=== PATIENT | female | born 1975 | race African-American/Black ===

== ENCOUNTER 2017-09-13 17:44 | Inpatient (IN) | payer SELFPAY ==
[~2017-09-13 17:44] MED LIST: Lidocaine 1% PF 5 ML VIAL ONE; PROPOFOL 200 MG/20 ML VIAL ONE
--- NOTE | 2017-09-13 18:46 | RAD ---
RIGHT HAND: 09/13/17 Three views. HISTORY: Injury with pain. Carpals appear intact. The metacarpals and phalanges appear intact. There is flexion of the PIP joint s which degrades evaluation of the phalanges. IMPRESSION: No acute fracture or dislocation identified. POS: [facility]
--- NOTE | 2017-09-13 18:52 | RAD ---
RIGHT FOREARM TWO VIEWS: 09/13/17 HISTORY: Injury. Right forearm pain. FINDINGS/IMPRESSION: No bony abnormalities are identified. POS: [facility]
[2017-09-13 19:07] LABS: #Basophils 0.1 thou/uL (0.0-0.2); #Lymphocytes 1.3 thou/uL (1.20-3.40); #Neutrophils 11.7 thou/uL (1.40-6.50); %Basophils 0.4 % (0.0-1.0); %Eosinophils 0.2 % (0.0-10.0); %Lymphocytes 9.5 % (21.0-51.0); %Monocytes 6.9 % (0.0-10.0); Hemoglobin 13.2 g/dL (12.0-16.0); Mean Corpuscular HGB CONC 33.9 g/dL (32.0-36.0); Mean Corpuscular Hemoglobin 30.6 pg (27.0-31.0); Mean Corpuscular Volume 90.2 fl (81.0-99.0); Mean Platelet Volume 9.2 fL (7.4-10.4); Platelet Count 263 thou/uL (130-400); RBC Distribution Width 13.1 % (11.5-14.5); Red Blood Cell (RBC) Count 4.31 mill/uL (4.20-5.40); White Blood Cell (WBC) Count 14.1 thou/uL (4.8-10.8)
[2017-09-13] MEDS ORDERED: Adacel (T-DAP) 0.5 ML VIAL ONE (19:16)
[2017-09-13 19:17] LABS: Pregnancy Test - Urine (BHCG) Negative (Negative); Pregu Control Background? CLEAR/WHITE (CLR/WHITE); Pregu Control Bar Appear? YES (CONTROL BAR); Specific Gravity 1.036 (1.002-1.036)
[2017-09-13 20:04] LABS: Albumin 3.9 g/dL (3.5-5.0)
[2017-09-13 20:05] LABS: Chloride 105 mmol/L (98-107); Potassium 3.9 mmol/L (3.5-5.1); Sodium 136 mmol/L (136-145)
[2017-09-13 20:06] LABS: Calcium 9.5 mg/dL (7.8-10.44); Glucose 264 mg/dL (70-105)
[2017-09-13 20:07] LABS: Globulin 4.1 g/dL (2.4-3.5)
[2017-09-13 20:08] LABS: Anion Gap 17 mmol/L (10-20); Bilirubin, Total 0.6 mg/dL (0.2-1.2); Carbon Dioxide 18 mmol/L (22-29)
[2017-09-13 20:09] LABS: Alkaline Phosphatase 76 U/L (40-150)
--- NOTE | 2017-09-13 20:09 | HP ---
DATE OF ADMISSION: 09/13/2017 PRINCIPAL DIAGNOSIS: Right hand infection. BRIEF HISTORY OF PRESENT ILLNESS: The patient is a 42-year-old right-hand dominant lady, who reports that yesterday she was trying to change a tire on her car when the car iftikhar fell, striking her hand. She reports that over the last 24 hours, she has had increasing pain, swelling, and redness as well as some drainage from a dorsal laceration. She denies numbness or tingling. [facility] of increasing pain, tachycardia, and just a general sense of malaise associated with this hand injury. Upon evaluation, she was found to have a very swollen right hand with a tens e thenar eminence and swelling over the dorsal aspect of the thumb webspace. As such, orthopedic con sultation requested. PAST MEDICAL HISTORY: Remarkable for diabetes and hypertension. PAST SURGICAL HISTORY: Negative. MEDICATIONS: Lisinopril 20 mg p.o. daily, metformin 1000 mg p.o. 2 times a day before meals, and Lev jesenia 55 units subcutaneous 2 times a day before meals. ALLERGIES: None known. FAMILY HISTORY: Noncontributory. SOCIAL HISTORY: The patient smokes socially a few cigarettes per day. She denies alcohol or drug us e. REVIEW OF SYSTEMS: She reports some sensation of sweats and what she believes were low-grade fevers. Denies chest pain or shortness of breath. Denies numbness or tingling in the hand. PHYSICAL EXAMINATION: VITAL SIGNS: Temperature 98.5, heart rate of 120, respiratory rate of 18, and blood pressure of 148/ 100. HEENT: Atraumatic, normocephalic. HEART: Regular rate and rhythm without murmur. LUNGS: Clear to auscultation with good breath sounds bilaterally. ABDOMEN: Round and soft with normal bowel sounds. PELVIS: Stable. EXTREMITIES: Remarkable for a right upper extremity with atraumatic shoulder, elbow, and forearm. H er hand is remarkable for a small laceration over the dorsal aspect of the hand basically overlying t he index metacarpal. This is full-thickness skin, but does not appear to have significant soft tissu e trauma associated with this laceration. She was found to have significant swelling along the thena r eminence with redness, extreme tenderness to palpation, and pain with extension of the thumb. I do not appreciate significant flexor tendon tenderness along the thumb, but she clearly has pain when I extended. LABORATORY DATA: White count of 14.1, hematocrit of 38.9, and platelets 263,000. X-rays remarkable for a 2-view x-ray of the right forearm, which is remarkable for normal bony anatomy. A 3-view x-ray of the right hand is remarkable for no evidence of acute fracture or dislocation. There does appear to be some air or gas within the thenar eminence region that appears to be in the subcutaneous space , perhaps just consistent with her crush injury and laceration, although I think we do need to rule o ut the possibility of deeper infection as well. ASSESSMENT: A 42-year-old lady status post crush injury to hand, now with a very swollen thenar madison ence; elevated white cell count of 14.1; and findings worrisome for deep infection of the thenar spac e. The patient also with a diagnosis of diabetes for which she is on medication, but reports poor co ntrol and also hypertension with marginal control. PLAN: At this time, the patient will be admitted to the Orthopedic Service. We will obtain medical consultation with the [facility] for management of her diabetes and hypertension. We will also ob tain consultation from Dr. Omar Ojeda regarding appropriate antibiotics once cultures have returne d. The patient will be given a tetanus update in the emergency room. We will hold antibiotics until we can obtain cultures from this hand. Today, I discussed with the patient risks and benefits of th e procedure, incision and drainage. Risks include, but are not limited to bleeding, infection, nerve injury, DVT, PE, loss of limb or life. The patient appears to understand and does wish to proceed. Consent will be obtained prior to surgery.
[2017-09-13 20:10] LABS: Calc. Creatinine Clearance 0 mL/min (70-130); Estimated GFR-MDRD Greater than 90
[2017-09-13 20:11] LABS: AST (SGOT) 8 U/L (5-34); BUN (Urea Nitrogen) 7 mg/dL (7.0-18.7)
[2017-09-13 20:12] LABS: ALT (SGPT) 7 U/L (8-55)
[2017-09-13] MEDS ORDERED: Fentanyl 100 MCG/2 ML VIAL ONE ×6 (20:53→23:42)
[2017-09-13] MEDS ORDERED: Ketorolac Tromethamine 30 MG/ML VIAL ONE (21:59)
[2017-09-13] MEDS ORDERED: Neomycin-Polymyxin 1 ML AMP ONE (22:11)
[2017-09-13] MEDS ORDERED: Piperacillin/Tazobactam 3.375 GM VIAL ONE (23:06)
[2017-09-13] MEDS ORDERED: Promethazine HCl 25 MG/ML VIAL SLOW IVP PRN (23:26)
[2017-09-13] MEDS ORDERED: Ondansetron HCl/PF 4 MG/2 ML Vial IVP PRN (23:26)
[2017-09-13] MEDS ORDERED: Promethazine HCl 25 MG/ML VIAL IM PRN (23:26)
[2017-09-14] MEDS ORDERED: diphenhydrAMINE 50 MG/ML VIAL ONE (00:02)
[2017-09-14 00:40] VITALS: BMI 33.1
[2017-09-14] MEDS ORDERED: Communication Order-Pharmacy FS SCH (01:32)
[2017-09-14] MEDS ORDERED: Acetaminophen 325 MG TAB PO PRN (01:32)
[2017-09-14] MEDS ORDERED: traMADol HCl 50 MG TAB PO PRN ×2 (01:32)
[2017-09-14] MEDS ORDERED: TETANUS AND DIPHTHERIA TOX/PF 0.5 ML DISP.SYRIN IM SCH (01:32)
[2017-09-14] MEDS ORDERED: Ondansetron HCl/PF 4 MG/2 ML Vial IV PRN (01:32)
[2017-09-14] MEDS ORDERED: HYDROcodone/Acetaminophen 10/325 mg Tablet PO PRN (01:32)
[2017-09-14] MEDS ORDERED: Fentanyl 100 MCG/2 ML VIAL SLOW IVP PRN (01:32)
[2017-09-14] MEDS: Piperacillin/Tazobactam 3.375 GM in Sodium Chloride 0.9% 100 ML IVPB SCH ×5 (01:34→21:11)
[2017-09-14] MEDS ORDERED: diphenhydrAMINE 25 MG CAP PO PRN (01:47)
[2017-09-14] MEDS ORDERED: Aspirin 81 mg Enteric Coated Tablet PO SCH (02:00)
[2017-09-14] MEDS: CEFAZOLIN/Water 2 GM/20 ML SYRINGE SLOW IVP SCH ×4 (03:02→21:31)
[2017-09-14] MEDS: Vancomycin HCl 1.5 GM in Sodium Chloride 0.9% 250 ML 300 ML IVPB SCH ×2 (03:02→16:44)
[2017-09-14] MEDS: diphenhydrAMINE 50 MG/ML VIAL IVP PRN ×2 (03:03→10:03)
[2017-09-14 05:11] LABS: #Lymphocytes 1.3 thou/uL (1.20-3.40); #Monocytes 1.1 thou/uL (0.11-0.59); #Neutrophils 10.7 thou/uL (1.40-6.50); %Eosinophils 0.1 % (0.0-10.0); %Lymphocytes 9.8 % (21.0-51.0); %Monocytes 8.3 % (0.0-10.0); %Neutrophils 81.8 % (42.0-75.0); Hemoglobin 11.6 g/dL (12.0-16.0); Mean Corpuscular HGB CONC 33.7 g/dL (32.0-36.0); Mean Corpuscular Hemoglobin 30.2 pg (27.0-31.0); Mean Corpuscular Volume 89.5 fl (81.0-99.0); Mean Platelet Volume 8.1 fL (7.4-10.4); Platelet Count 264 thou/uL (130-400); RBC Distribution Width 12.6 % (11.5-14.5); Red Blood Cell (RBC) Count 3.85 mill/uL (4.20-5.40)
[2017-09-14] MEDS: Ketorolac Tromethamine 30 MG/ML VIAL IVP SCH ×5 (05:31→21:10)
[2017-09-14] MEDS: HYDROcodone/Acetaminophen 10/325 mg Tablet PO PRN ×2 (07:47→19:32)
[2017-09-14] MEDS ORDERED: Vancomycin HCl 1 GM in Premix Bag 1 BAG IVPB SCH (09:00)
[2017-09-14] MEDS: Aspirin 81 mg Enteric Coated Tablet PO SCH ×2 (10:06→21:11)
[2017-09-14] MEDS ORDERED: Dextrose 5% in Water 1,000 ML IV PRN (13:49)
[2017-09-14] MEDS ORDERED: Dextrose 50% Abboject 50 ML SYRINGE SLOW IVP PRN (13:49)
--- NOTE | 2017-09-14 13:52 | PDOC.PN ---
- Subjective Encounter Start Date: 09/14/17 Encounter Start Time: 13:30 Subjective: pt up in bed has some pain to her right hand - Objective Vital Signs & Weight: Vital Signs (12 hours) Temp Pulse Resp BP Pulse Ox 09/14/17 11:43 97.7 F 82 16 94/61 100 09/14/17 08:00 99 F 82 16 09/14/17 07:26 99 F 82 16 106/67 99 Weight Weight 205 lb 8 oz I&O: 09/13/17 09/14/17 09/15/17 06:59 06:59 06:59 Intake Total 200 Balance 200 Result Diagrams: 09/14/17 04:36 09/13/17 19:44 Phys Exam - Physical Examination HEENT: PERRLA, moist MMs, sclera anicteric, TM's clear, oral pharynx no lesions , 2+ tonsils Neck: no nodes, no JVD, supple, full ROM Respiratory: no wheezing, no rales, no rhonchi, wheezing present, clear to auscultation bilateral Cardiovascular: RRR, no significant murmur, no rub, gallop, irregular Musculoskeletal: pulses present, edema present right hand wrapped, sensation to right fingers intact Neurological: non-focal, normal sensation, moves all 4 limbs Dx/Plan (1) Diabetes Code(s): E11.9 - TYPE 2 DIABETES MELLITUS WITHOUT COMPLICATIONS Status: Acute (2) HTN (hypertension) Code(s): I10 - ESSENTIAL (PRIMARY) HYPERTENSION Status: Acute (3) Cellulitis of right hand Code(s): L03.113 - CELLULITIS OF RIGHT UPPER LIMB Status: Acute - Plan * pt underwent I&d of her right hand. Inoperative cx sent. pt on zosyn and vanco. * will continue decrease dose of her long acting insulin with sliding scale * will start her on iv fluids due to hypotension * will hold bp meds Review of Systems - Review of Systems Respiratory: negative: Cough, Dry, Shortness of Breath, Hemoptysis, SOB with Excertion, Pleuritic Pain, Sputum, Wheezing Cardiovascular: negative: chest pain, palpitations, orthopnea, paroxysmal nocturnal dyspnea, edema, light headedness, other Gastrointestinal: negative: Nausea, Vomiting, Abdominal Pain, Diarrhea, Constipation, Melena, Hematochezia, Other Genitourinary: negative: Dysuria, Frequency, Incontinence, Hematuria, Retention , Other Musculoskeletal: Other (right hand pain) - Medications/Allergies Allergies/Adverse Reactions: Allergies Allergy/AdvReac Type Severity Reaction Status Date / Time No Known Drug Allergies Allergy Verified 09/27/13 18:11 Medications: Current Medications Acetaminophen (Tylenol) 650 mg PO Q6H PRN PRN Reason: Headache/Temp >101F/Mild Pain Hydrocodone Bitart/Acetaminophen ([place] 10/325) 1 tab PO Q4H PRN PRN Reason: Moderate Pain (4-6) Hydrocodone Bitart/Acetaminophen ([place] 10/325) 2 tab PO Q4H PRN PRN Reason: Severe Pain (7-10) Last Admin: 09/14/17 07:47 Dose: 2 tab Aspirin (Ecotrin) 81 mg PO BID [facility] Last Admin: 09/14/17 10:06 Dose: 81 mg Cefazolin Sodium (Ancef) 2 gm SLOW IVP Q8H [facility] Stop: 09/16/17 06:31 Dextrose/Water (Dextrose 50%) 25 gm SLOW IVP PRN PRN PRN Reason: Hypoglycemia Diphenhydramine HCl (Benadryl) 25 mg PO Q3H PRN PRN Reason: Itching & Insomnia Diphenhydramine HCl (Benadryl) 25 mg IVP Q3H PRN PRN Reason: Itching & Insomnia Last Admin: 09/14/17 03:03 Dose: 25 mg Fentanyl (Sublimaze) 50 mcg SLOW IVP Q30M PRN PRN Reason: Severe breakthrough pain Glucagon (Glucagon) 1 mg IM PRN PRN PRN Reason: Hypoglycemia Vancomycin HCl 1.5 gm/ Sodium (Chloride) 300 mls @ 200 mls/hr IVPB 0400,1600 [facility] Last Admin: 09/14/17 03:02 Dose: 300 mls Dextrose/Water (D5w) 1,000 mls @ 0 mls/hr IV .Q0M PRN; As Directed PRN Reason: Hypoglycemia Insulin Glargine 15 units/ (Miscellaneous Medication) 0.15 mls @ 0 mls/hr SC HS MIREYA Insulin Glargine 15 units/ (Miscellaneous Medication) 0.15 mls @ 0 mls/hr SC QAM [facility] Sodium Chloride (Normal Saline 0.9%) 1,000 mls @ 100 mls/hr IV .Q10H [facility] Last Admin: 09/14/17 14:56 Dose: 1,000 mls Piperacillin Sod/Tazobactam (Sod 3.375 gm/ Sodium Chloride) 100 mls @ 200 mls/ hr IVPB Q6H [facility] Last Admin: 09/14/17 14:59 Dose: 100 mls Insulin Human Lispro (Humalog) 0 units SC .MODERATE SLIDING SC PRN PRN Reason: Moderate Correctional Scale Ketorolac Tromethamine (Toradol) 15 mg IVP Q6H [facility] Stop: 09/15/17 02:31 Last Admin: 09/14/17 14:56 Dose: 15 mg Miscellaneous Information (Communication Order-Pharmacy) 1 each FS PRN [facility] Morphine Sulfate (Morphine) 2 mg SLOW IVP Q2H PRN PRN Reason: Moderate Pain (4-6) Morphine Sulfate (Morphine Sulfate) 4 mg SLOW IVP Q2H PRN PRN Reason: Severe Pain (7-10) Last Admin: 09/14/17 03:12 Dose: 4 mg Ondansetron HCl (Zofran) 4 mg PO Q6H PRN PRN Reason: Nausea Ondansetron HCl (Zofran) 4 mg IV Q6H PRN PRN Reason: Nausea Sodium Chloride (Flush - Normal Saline) 10 ml IVF PRN PRN PRN Reason: Saline Flush Tramadol HCl (Ultram) 50 mg PO Q6H PRN PRN Reason: Mild Pain (1-3) Tramadol HCl (Ultram) 100 mg PO Q6H PRN PRN Reason: Moderate Pain (4-6)
--- NOTE | 2017-09-14 14:47 | EKG ---
Test Reason : PREOP Blood Pressure : / mmHG Vent. Rate : 100 BPM Atrial Rate : 100 BPM P-R Int : 134 ms QRS Dur : 072 ms QT Int : 328 ms P-R-T Axes : 060 025 031 degrees QTc Int : 423 ms Normal sinus rhythm Possible Left atrial enlargement Borderline ECG Confirmed by JACQUE GOMEZ ([id number]), dictionary editor LILY PIPER ([id number]) on 09/14/2017 2:46:56 PM Referred By: KYLAH RIVERA Confirmed By:JACQUE GOMEZ
[2017-09-14] MEDS: Sodium Chloride 0.9% 1,000 ML IV SCH ×2 (14:56→21:16)
[2017-09-14] MEDS: HumaLOG 300 UNITS/3 ML VIAL SC PRN ×2 (16:37→21:12)
[2017-09-14 17:52] LABS: HIV (1/2) Antibody/Antigen Non-Reactive (NonReactive); HIV 1/2 INDEX 0.07 S/CO (<1.00); Hep C IgG Ab Non-Reactive (NonReactive); Hep C Index 0.06 S/CO (0-0.79)
[2017-09-14] MEDS ORDERED: Insulin Glargine 15 UNITS in Pre-Filled Syringe 1 EACH SC SCH (21:00)
--- NOTE | 2017-09-14 21:52 | CON ---
DATE OF CONSULTATION: 09/14/2017 REASON FOR CONSULTATION: Hand abscess. HISTORY OF PRESENT ILLNESS: A 42-year-old patient who has a history of type 2 diabetes and hypertens ion and sustained injury to her right hand while trying to change her car tire. There was some lacer ation, which became infected. She developed inflammatory changes and was admitted. Dr. Verdugo com pleted I&D. It looks like the patient had a thenar eminence abscess, which was I&D'd. The details o f the operative report are not yet transcribed. The patient is feeling better. She denies any heada ches, visual symptoms, sore throat, odynophagia, dysphagia. No dyspnea. No abdominal pain or diarrh ea. No genitourinary symptoms. No joint symptoms. No neurological symptoms. PAST MEDICAL HISTORY: Type 2 diabetes, hypertension. PAST SURGICAL HISTORY: The I&D done just recently. FAMILY HISTORY: Noncontributory. ALLERGIES: None. SOCIAL HISTORY: Current smoker. 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 No alcoholic beverage use or drug use. CURRENT MEDICATIONS: Tylenol, Sarita, Ecotrin, Ancef, Benadryl, insulin, Zosyn, vancomycin. PHYSICAL EXAMINATION: VITAL SIGNS: T-max 99, BP 108/73. Other vital signs are normal. O2 saturations 99%. SKIN: Shows the right hand abscess, status post I&D with packed thenar eminence wound. The patient has peripheral IV access. No lymphadenopathy. HEENT: Noncontributory. NECK: Supple. LUNGS: Symmetric clear breath sounds. HEART: S1, S2 regular rate. No S3 or S4. ABDOMEN: Soft. Not distended or tender. No ascites. No bladder distention. EXTREMITIES: No joint inflammatory activity. NEUROLOGIC: No neurological abnormalities noted. LABORATORY DATA: White cell count down to 13,000, hemoglobin 11.6, platelets 264. Sodium 136, creat inine 0.8, AST 8, ALT 7, alkaline phosphatase 76, albumin 3.9, globulin 4.1. Urinalysis was not clarisa rkable. Microbiology: We have pending cultures. The Gram stain showed polymicrobial mariela, part of it with gram positive in pairs and clusters, some gram-negative rods and gram-positive rods as well. ASSESSMENT: Injury to right hand with polymicrobial hand abscess, status post incision and drainage. We will wait on the surgical reports to review the details and also wait on the final ID and suscep tibilities of the organisms isolated to devise a discharge regimen; hopefully, oral regimen for disch arge planning. It does not look like she is going to require long-term therapy. We will check her H IV and hepatitis C status while she is here.
[2017-09-15] MEDS: Ketorolac Tromethamine 30 MG/ML VIAL IVP SCH (02:23)
[2017-09-15] MEDS: Piperacillin/Tazobactam 3.375 GM in Sodium Chloride 0.9% 100 ML IVPB SCH ×4 (02:23→21:36)
[2017-09-15] MEDS: Vancomycin HCl 1.5 GM in Sodium Chloride 0.9% 250 ML 300 ML IVPB SCH (03:41)
[2017-09-15] MEDS: CEFAZOLIN/Water 2 GM/20 ML SYRINGE SLOW IVP SCH ×3 (06:08→21:37)
[2017-09-15] MEDS: HumaLOG 300 UNITS/3 ML VIAL SC PRN ×3 (06:11→16:45)
[2017-09-15] MEDS ORDERED: Non-Formulary Item 1 EACH (Lisinopril [Lisinopril] 40 MG) PO SCH (09:00)
[2017-09-15] MEDS ORDERED: Insulin Glargine 15 UNITS in Pre-Filled Syringe 1 EACH SC SCH (09:00)
[2017-09-15] MEDS: Insulin Glargine 60 UNITS in Pre-Filled Syringe 1 EACH SC SCH (09:19)
[2017-09-15] MEDS: Sodium Chloride 0.9% 1,000 ML IV SCH ×2 (11:10→23:13)
[2017-09-15] MEDS: Aspirin 81 mg Enteric Coated Tablet PO SCH ×2 (11:14→21:33)
[2017-09-15] MEDS: HYDROcodone/Acetaminophen 10/325 mg Tablet PO PRN ×3 (11:14→21:35)
--- NOTE | 2017-09-15 12:25 | SPC ---
SONOGRAPHIC GUIDED LEFT UPPER EXTREMITY PICC PLACEMENT: Date: 09/15/17 HISTORY: Hand infection. FINDINGS: After explaining the procedure and answering all questions, the left upper extremity was prepped and draped in the usual sterile fashion. Sterile technique, buffered local anesthesia, sonographic guidan ce, and a 22 gauge needle were used to carefully access the left basilic vein. Standard technique was then used to place the tip of a 5 Spanish single lumen PICC so that the tip lies at the level of the right atrium. The catheter was flushed and secured externally. The patient tolerated the procedure we ll and was returned in unchanged condition. Fluoro Time: 0.1 minutes. IMPRESSION: Technically successful left upper extremity PICC placement. Catheter is now ready for use. POS: [facility]
[2017-09-15 15:13] LABS: Vancomycin, Trough 10.8 ug/mL
[2017-09-15] MEDS: Vancomycin HCl 1.75 GM in Sodium Chloride 0.9% 500 ML IVPB SCH (16:01)
--- NOTE | 2017-09-15 17:34 | PRG ---
DATE OF SERVICE: 09/15/2017 SUBJECTIVE: Still concerned with size of the wound. It is moderately painful. No respiratory sympt oms or abdominal pain, no diarrhea. PHYSICAL EXAMINATION: VITAL SIGNS: Normal. The wound is packed and dressed, which was not removed. LUNGS: Without any significant changes. HEART: Without any significant changes. ABDOMEN: Without any significant changes. LABORATORY DATA: White cell count 13.0, hemoglobin 11.6 from yesterday. Platelets 264. Chemistry w ith creatinine of 0.8. Liver profile normal. Hepatitis C and HIV nonreactive. Her hand culture rev ealed group C streptococcus. ASSESSMENT AND DISCUSSION: Injury to right hand with hand abscess, looks like it is going to turn ou t to be secondary to group C streptococcus. Consider discharge planning on Keflex 500 mg 4 times lisa ly for 10 days, wound care.
[2017-09-15] MEDS ORDERED: Insulin Glargine 60 UNITS in Pre-Filled Syringe 1 EACH SC SCH (21:00)
[2017-09-15] MEDS ORDERED: Insulin Glargine 30 UNITS in Pre-Filled Syringe 1 EACH SC SCH (21:00)
[2017-09-16] MEDS: Piperacillin/Tazobactam 3.375 GM in Sodium Chloride 0.9% 100 ML IVPB SCH ×3 (02:20→16:32)
[2017-09-16] MEDS: Vancomycin HCl 1.75 GM in Sodium Chloride 0.9% 500 ML IVPB SCH ×2 (03:32→18:12)
[2017-09-16] MEDS: Sodium Chloride 0.9% 1,000 ML IV SCH (05:33)
[2017-09-16] MEDS: CEFAZOLIN/Water 2 GM/20 ML SYRINGE SLOW IVP SCH (05:52)
[2017-09-16] MEDS: HYDROcodone/Acetaminophen 10/325 mg Tablet PO PRN ×3 (05:57→14:21)
--- NOTE | 2017-09-16 07:31 | PDOC.PN ---
- Subjective Encounter Start Date: 09/15/17 Encounter Start Time: 10:45 Subjective: pt up in bed no complains - Objective Vital Signs & Weight: Vital Signs (12 hours) Temp Pulse Resp BP Pulse Ox 09/16/17 03:58 98.6 F 77 16 128/73 100 09/16/17 03:00 99 09/15/17 23:55 98.8 F 81 16 119/77 100 09/15/17 20:27 98.4 F 79 20 153/91 H 100 09/15/17 20:00 98.4 F 79 20 100 Weight Admit Weight 205 lb Weight 205 lb 8 oz I&O: 09/15/17 09/16/17 09/17/17 06:59 06:59 06:59 Intake Total 2571.0 3980 Balance 2571.0 3980 Result Diagrams: 09/14/17 04:36 09/13/17 19:44 Additional Labs: Accuchecks 09/16/17 09/15/17 09/15/17 05:38 20:52 16:13 POC Glucose 97 174 H 281 H 09/15/17 11:30 POC Glucose 264 H Phys Exam - Physical Examination HEENT: PERRLA, moist MMs, sclera anicteric, TM's clear, oral pharynx no lesions , 2+ tonsils Neck: no nodes, no JVD, supple, full ROM Respiratory: no wheezing, no rales, no rhonchi, wheezing present, clear to auscultation bilateral Cardiovascular: RRR, no significant murmur, no rub, gallop, irregular right hand wrapped in rosa isela Dx/Plan (1) Diabetes Code(s): E11.9 - TYPE 2 DIABETES MELLITUS WITHOUT COMPLICATIONS Status: Acute (2) HTN (hypertension) Code(s): I10 - ESSENTIAL (PRIMARY) HYPERTENSION Status: Acute (3) Cellulitis of right hand Code(s): L03.113 - CELLULITIS OF RIGHT UPPER LIMB Status: Acute - Plan * Long acting insulin dose increased. continue abx for now. ID consulted. If bp is stable will discontinue fluids. Review of Systems - Review of Systems ENT: negative: Ear Pain, Ear Discharge, Nose Pain, Nose Discharge, Nose Congestion, Mouth Pain, Mouth Swelling, Throat Pain, Throat Swelling, Other Respiratory: negative: Cough, Dry, Shortness of Breath, Hemoptysis, SOB with Excertion, Pleuritic Pain, Sputum, Wheezing Cardiovascular: negative: chest pain, palpitations, orthopnea, paroxysmal nocturnal dyspnea, edema, light headedness, other - Medications/Allergies Allergies/Adverse Reactions: Allergies Allergy/AdvReac Type Severity Reaction Status Date / Time No Known Drug Allergies Allergy Verified 09/27/13 18:11 Medications: Current Medications Acetaminophen (Tylenol) 650 mg PO Q6H PRN PRN Reason: Headache/Temp >101F/Mild Pain Hydrocodone Bitart/Acetaminophen ([place] 10/325) 1 tab PO Q4H PRN PRN Reason: Moderate Pain (4-6) Hydrocodone Bitart/Acetaminophen ([place] 10/325) 2 tab PO Q4H PRN PRN Reason: Severe Pain (7-10) Last Admin: 09/16/17 05:57 Dose: 2 tab Aspirin (Ecotrin) 81 mg PO BID [facility] Last Admin: 09/15/17 21:33 Dose: 81 mg Dextrose/Water (Dextrose 50%) 25 gm SLOW IVP PRN PRN PRN Reason: Hypoglycemia Diphenhydramine HCl (Benadryl) 25 mg PO Q3H PRN PRN Reason: Itching & Insomnia Diphenhydramine HCl (Benadryl) 25 mg IVP Q3H PRN PRN Reason: Itching & Insomnia Last Admin: 09/14/17 03:03 Dose: 25 mg Fentanyl (Sublimaze) 50 mcg SLOW IVP Q30M PRN PRN Reason: Severe breakthrough pain Glucagon (Glucagon) 1 mg IM PRN PRN PRN Reason: Hypoglycemia Dextrose/Water (D5w) 1,000 mls @ 0 mls/hr IV .Q0M PRN; As Directed PRN Reason: Hypoglycemia Sodium Chloride (Normal Saline 0.9%) 1,000 mls @ 100 mls/hr IV .Q10H [facility] Last Admin: 09/16/17 05:33 Dose: Not Given Piperacillin Sod/Tazobactam (Sod 3.375 gm/ Sodium Chloride) 100 mls @ 200 mls/ hr IVPB Q6H [facility] Last Admin: 09/16/17 02:20 Dose: 100 mls Insulin Glargine 60 units/ (Miscellaneous Medication) 0.6 mls @ 0 mls/[facility] Last Admin: 09/15/17 09:19 Dose: 0.6 mls Insulin Glargine 30 units/ (Miscellaneous Medication) 0.3 mls @ 0 mls/hr SC HS [facility] Last Admin: 09/15/17 21:35 Dose: 0.3 mls Vancomycin HCl 1.75 gm/ Sodium (Chloride) 500 mls @ 250 mls/hr IVPB 0400,1600 [facility] Last Admin: 09/16/17 03:32 Dose: 500 mls Insulin Human Lispro (Humalog) 0 units SC .AGGRESSIVE SLIDING PRN PRN Reason: Aggressive Correctional Scale Last Admin: 09/15/17 16:45 Dose: 9 unit Miscellaneous Information (Communication Order-Pharmacy) 1 each FS PRN [facility] Morphine Sulfate (Morphine) 2 mg SLOW IVP Q2H PRN PRN Reason: Moderate Pain (4-6) Last Admin: 09/15/17 14:47 Dose: 2 mg Morphine Sulfate (Morphine Sulfate) 4 mg SLOW IVP Q2H PRN PRN Reason: Severe Pain (7-10) Last Admin: 09/14/17 03:12 Dose: 4 mg Ondansetron HCl (Zofran) 4 mg PO Q6H PRN PRN Reason: Nausea Ondansetron HCl (Zofran) 4 mg IV Q6H PRN PRN Reason: Nausea Sodium Chloride (Flush - Normal Saline) 10 ml IVF PRN PRN PRN Reason: Saline Flush Tramadol HCl (Ultram) 50 mg PO Q6H PRN PRN Reason: Mild Pain (1-3) Tramadol HCl (Ultram) 100 mg PO Q6H PRN PRN Reason: Moderate Pain (4-6)
[2017-09-16] MEDS ORDERED: Dextrose 5% in Water 1,000 ML IV PRN (07:32)
[2017-09-16] MEDS ORDERED: Dextrose 50% Abboject 50 ML SYRINGE SLOW IVP PRN (07:32)
[2017-09-16] MEDS: Insulin Glargine 60 UNITS in Pre-Filled Syringe 1 EACH SC SCH (09:12)
[2017-09-16] MEDS: HumaLOG 300 UNITS/3 ML VIAL SC SCH ×2 (09:14→15:00)
[2017-09-16] MEDS: Aspirin 81 mg Enteric Coated Tablet PO SCH (09:16)
--- NOTE | 2017-09-16 11:03 | OP ---
DATE OF PROCEDURE: 09/13/2017 PREOPERATIVE DIAGNOSIS: Right hand abscess. POSTOPERATIVE DIAGNOSES: 1. Right thenar space abscess. 2. Right dorsal first webspace abscess. PROCEDURE: Incision and drainage of right thenar eminence and right dorsal first webspace. ANESTHESIA: General. SURGEON: Mauro Verdugo M.D. POULTRY PICKING MACHINE TENDER: Carlitos Levy PA-C TOURNIQUET TIME: Twelve minutes at 250 mmHg. SPECIMEN: Swab sent for Gram stain culture and sensitivity. DRAINS: None. COMPLICATIONS: None. OUTCOME: Satisfactory. INDICATIONS: Patient is a 42-year-old lady with diabetes, reports that approximately 24 hours prior to admission, she had a crush injury to the hand. Subsequently, went onto develop increasing pain, s welling, and some mild drainage from a small laceration at the dorsal aspect of the hand. On clinica l evaluation, the patient is found to have a hand abscess with a very swollen thenar eminence and sharonda dence of swelling over the dorsal aspect of the first webspace. As such, she is now taken to the ope rating room for incision and drainage. Informed consent has been obtained. I believe all questions answered. DESCRIPTION OF PROCEDURE: The patient was brought to the operating room and a timeout performed foll owed by induction of general anesthesia. Next, a curvilinear incision was made just to the radial si de of the thenar skin crease. After skin was sharply incised, dissection was carried down bluntly wi th scissors and at this point, an abscess cavity was entered. This abscess cavity was within the the marco a eminence. Inspection and sweeping of the abscess cavity with my finger showed a clear abscess co llection that did not extend into the carpal canal. Next, a vertical incision was made over the smal l laceration at the dorsal aspect of the first webspace. Again, once the skin was incised, purulent material was encountered. There did appear to be a connection between the two via subcutaneous disse ction around the base of the thumb. Both wounds were thoroughly inspected and then irrigated with Pu lsavac with a total of three liters of normal saline with antibiotic irrigant irrigated through th e wounds. It should be noted that swabs were taken from both the palmar and dorsal abscess cavities. Once thoroughly irrigated, the wound was packed open with gauze and then a bulky soft dressing appl ied to the hand. The patient was then transferred to recovery room in stable condition. There were no complications. She tolerated the procedure well.
[2017-09-16 11:14] VITALS: TEMP 97.9
[2017-09-16] MEDS: HumaLOG 300 UNITS/3 ML VIAL SC PRN (13:14)
[2017-09-16 15:50] VITALS: BP 165/104
[2017-09-16] MEDS ORDERED: Heparin 1,000 UNITS/ML VIAL ONE (18:12)
[2017-09-17 19:09] LABS: Fungus Stain Final report (.)
[2017-09-17 19:09] LABS: Fungus Stain Final report (.)
== END 2017-09-16 18:05 | disposition home or self-care (01) | DRG 580 ==
LOC: ERS 17:44 → SDC/OP 20:26 → SURG B 20:28
PROVIDERS: ADMIT Orthopaedic Surgery; ATTEND Orthopaedic Surgery
PROC: 0J9J0ZZ Drainage of Right Hand Subcutaneous Tissue and Fascia, Open Approach (ICD-10-PCS; principal; 2017-09-13)
DX: L02.511 Cutaneous abscess of right hand (principal); L03.113 Cellulitis of right upper limb; S67.21XA Crushing injury of right hand, initial encounter; S61.411A Laceration without foreign body of right hand, initial encounter; I10 Essential (primary) hypertension; Z79.4 Long term (current) use of insulin; F17.210 Nicotine dependence, cigarettes, uncomplicated; E11.65 Type 2 diabetes mellitus with hyperglycemia; X58.XXXA Exposure to other specified factors, initial encounter; B95.4 Other streptococcus as the cause of diseases classified elsewhere
CPT/HCPCS: 36415; 36416; 36569; 80053; 80202; 81025; 83605; 85025; 86803; 87040; 87070; 87077; 87102; 87205; 87206; 87389; 90471; 90715; 93005; 96361; 96374; 99406; J1200; J1644; J1885; J2001; J2270; J2543; J2704; J3010; J3370; J7050

== ENCOUNTER 2018-06-19 01:02 | Emergency (ER) | payer OTHER, SELFPAY ==
[2018-06-19 01:39] LABS: #Basophils 0.1 thou/uL (0.0-0.2); #Eosinphils 0.1 thou/uL (0.0-0.7); #Lymphocytes 2.8 thou/uL (1.20-3.40); #Monocytes 0.6 thou/uL (0.11-0.59); #Neutrophils 4.6 thou/uL (1.40-6.50); %Basophils 0.9 % (0.0-1.0); %Eosinophils 0.7 % (0.0-10.0); %Lymphocytes 34.7 % (21.0-51.0); %Monocytes 7.1 % (0.0-10.0); %Neutrophils 56.6 % (42.0-75.0); Hemoglobin 13.1 g/dL (12.0-16.0); Mean Corpuscular HGB CONC 33.7 g/dL (32.0-36.0); Mean Corpuscular Hemoglobin 30.9 pg (27.0-31.0); Mean Corpuscular Volume 91.8 fL (78.0-98.0); Mean Platelet Volume 8.5 fL (7.4-10.4); Platelet Count 276 thou/uL (130-400); RBC Distribution Width 12.1 % (11.5-14.5); Red Blood Cell (RBC) Count 4.23 mill/uL (4.20-5.40); White Blood Cell (WBC) Count 8.1 thou/uL (4.8-10.8)
[2018-06-19 01:55] LABS: Phosphorus 3.4 mg/dL (2.3-4.7)
[2018-06-19 01:58] LABS: ALT (SGPT) 8 U/L (8-55); AST (SGOT) 10 U/L (5-34); Albumin 4.2 g/dL (3.5-5.0); Alkaline Phosphatase 55 U/L (40-150); Anion Gap 14 mmol/L (10-20); BUN (Urea Nitrogen) 14 mg/dL (7.0-18.7); Bilirubin, Total 0.3 mg/dL (0.2-1.2); Calc. Creatinine Clearance 0 mL/min (70-130); Calcium 10.4 mg/dL (7.8-10.44); Carbon Dioxide 19 mmol/L (22-29); Chloride 106 mmol/L (98-107); Estimated GFR-MDRD 84; Globulin 3.4 g/dL (2.4-3.5); Glucose 218 mg/dL (70-105); Magnesium 1.7 mg/dL (1.6-2.6); Potassium 4.1 mmol/L (3.5-5.1); Protein, Total 7.6 g/dL (6.0-8.3); Sodium 135 mmol/L (136-145)
== END 2018-06-19 02:33 | disposition home or self-care (01) ==
LOC: ERS 01:02
DX: E11.65 Type 2 diabetes mellitus with hyperglycemia (principal); I10 Essential (primary) hypertension; F41.9 Anxiety disorder, unspecified; F32.9 Major depressive disorder, single episode, unspecified; F17.210 Nicotine dependence, cigarettes, uncomplicated; Z79.4 Long term (current) use of insulin; Z79.899 Other long term (current) drug therapy
CPT/HCPCS: 36415; 36416; 80053; 82010; 83735; 84100; 85025; 99284